=== PATIENT | male | born 1965 | race Caucasian/White ===

== ENCOUNTER → 2023-09-18 10:44 | Outpatient (REF) | payer BC, SELFPAY ==
[2023-09-18 16:19] LABS: Blood Urea Nitrogen 14 mg/dl (9-20); Calcium 10.2 mg/dl (8.4-10.2); Carbon Dioxide 22 mmol/L (22-30); Chloride 105 mmol/L (98-107); Glucose 87 mg/dl (70-99); Potassium 4.3 mmol/L (3.5-5.1); Sodium 139 mmol/L (135-145); eGFR > 60.00
== END ==
LOC: HWLAB 10:44
PROVIDERS: ATTENDING PHYSICIAN Surgery Vascular Surgery; FAMILY PHYSICIAN Family Medicine
DX: I65.23 Occlusion and stenosis of bilateral carotid arteries (principal)
CPT/HCPCS: 36415; 80048

== ENCOUNTER → 2023-09-25 08:40 | Outpatient (REF) | payer BC, SELFPAY | LOC: RAD 08:40 | PROVIDERS: ATTENDING PHYSICIAN Surgery Vascular Surgery; FAMILY PHYSICIAN Family Medicine | DX: I65.23 Occlusion and stenosis of bilateral carotid arteries (principal) | CPT/HCPCS: 70496; 70498; Q9967 ==

== ENCOUNTER 2023-10-21 08:27 | Inpatient (IN) | payer BC, SELFPAY ==
[2023-10-17 09:13] VITALS: BMI 24.7
[2023-10-17 10:15] LABS: % Basophils 1.1 % (0-2); % Eosinophils 3.1 % (0-6); % Immature Granulocytes 0.2 % (0-0.5); % Lymphocytes 31.8 % (20.5-51.1); % Neutrophils 57.8 % (42.2-75.2); Absolute Basophils 0.1 10^3/uL (0-0.2); Absolute Eosinophils 0.2 10^3/uL (0-0.7); Absolute Monocytes 0.4 10^3/uL (0.1-0.6); Absolute Neutrophils 3.7 10^3/uL (1.4-6.5); Hematocrit 44.3 % (39.0-52.0); Hemoglobin 15.2 g/dL (13.0-18.0); Mean Corp Hgb Conc. 34.3 g/dL (33.0-37.0); Mean Corpuscular Volume 87.4 fL (80.0-94.0); Mean Platelet Volume 9.9 fL (7.4-10.4); Nucleated Red Blood Cells % 0 % (-); Platelet Count 104 10^3/uL (130-400); Red Blood Cell Count 5.07 10^6/uL (4.70-6.10); Red Cell Dist. Width 13.2 % (11.5-14.5); White Blood Cell Count 6.4 10^3/uL (4.8-10.8)
[2023-10-17 10:23] LABS: APTT 29.8 Sec (23.4-35.0); INR 1.35; PT 16.5 Sec (11.4-14.6)
[2023-10-17 12:13] LABS: Blood Urea Nitrogen 19 mg/dl (9-20); Calcium 9.6 mg/dl (8.4-10.2); Carbon Dioxide 23 mmol/L (22-30); Chloride 103 mmol/L (98-107); Estimated Creatinine Clearance 101 ml/min; Glucose 72 mg/dl (70-99); Potassium 3.6 mmol/L (3.5-5.1); Sodium 135 mmol/L (135-145); eGFR > 60.00
--- NOTE | 2023-10-17 12:51 | PTCARENOTE ---
Adamaris in Dr. Benitez's office made aware of INR 1.35.
[2023-10-21] VITALS (21 sets, daily range): BP systolic 99–150; BP diastolic 51–86
[2023-10-21] MEDS: NSS 500 IV (09:39)
[2023-10-21] MEDS: PERIDEX 0.12% ORAL RINSE 15 ML PO (09:39)
[2023-10-21] MEDS: BACTROBAN NASAL 1 GRAM NASAL (09:40)
--- NOTE | 2023-10-21 09:56 | W.SUR.PREOP ---
Pre-Operative Surgical Note
-
I have examined this patient prior to the performance of the scheduled procedure.
The patient's condition is unchanged from the time of the current History and
Physical and the patient is able to undergo the scheduled procedure.
[2023-10-21 11:38] LABS: ACT-LR - POC 377 Seconds (116-155)
[2023-10-21 12:13] LABS: ACT-LR - POC 289 Seconds (116-155)
--- NOTE | 2023-10-21 13:06 | W.IMMPOSTOP ---
Surgical Immed Post Op Note
-
Primary Surgeon: Dr. Bhavesh Benitez III, MD
Assisting Surgeon: Dr. Andres Fuchs MD, PhD (PGY-1)
Pre-op Diagnosis: Right carotid stenosis
Post-op Diagnosis: Right carotid stenosis
Procedure Performed: Right carotid endarterectomy
Anesthesia Type: General
Specimen / Cultures: None
Estimated Blood Loss: Minimal
Complications: None
Operative Findings: Patient was positioned in supine position and ultrasound was used to confirmed the position and course of the right common carotid artery. After prepping and draping the patient, incision was made along the course of the common
carotid. Sharp dissection was used to expose the common carotid circumferentially. The internal jugular vein and vagus nerve were identified as avoid during the procedure. Small branches of the ansa cervicalis and the facial vein were ligated and
divided. The common carotid as well as the proximal aspects of the external and internal carotid branches were exposed. Vessel loops were placed around each of these arteries as well as the superficial thyroid artery. After these vessels were
isolated (internal, common, external), heparin was given. Vessel loop at the distal right common carotid was replaced with a clamp. Arteriotomy was performed on the common carotid extending into the internal branch beyond the area of disease.
Free-ers were used to remove the plaque from the inside of the common and proximal internal carotid arteries. A bovine pericardial patch was sized to the defect and a patch arterioplasty was performed with running 7-0 prolene suture. Heparinized
saline was injected prior to completion of the patch. After the patch was sewn, areas of additional bleeding were fixed with interrupted repair sutures. Vessel loops were removed and a strong waveform/flow was confirmed in both the internal and
external carotid arteries distally beyond the patch. Hemostasis was the achieved with gel foam. Soft tissues and skin were closed with suture layers and skin glue. Following extubation, the patient followed commands and had a non focal neuro exam
with gross motor function of all four extremities and tongue intact.
[2023-10-21] MEDS: DILAUDID 0.25 MG IV ×2 (13:26→13:39)
--- NOTE | 2023-10-21 13:27 | OR.RPT ---
Operative Report
Operative Report
Date of Operation: 10/21/2023
Pre Op Diagnosis: LEFT carotid artery stenosis, asymptomatic
Post Op Diagnosis: LEFT carotid artery stenosis, asymptomatic
Procedure: LEFT carotid artery endarterectomy with patch angioplasty using bovine pericardium
Surgeon: Bhavesh Benitez III, MD
Coupon Clerk: Andres Fuchs MD PhD, PGY1
Anesthesia: General
Complications: None
History and Indications for Procedure: 58-year-old male with asymptomatic high-grade stenosis of his left carotid artery
Procedure in Detail: Eduardo Riley was correctly identified and placed supine on the operating table. After adequate induction of anesthesia the left neck was positioned, prepped and draped in the usual sterile fashion. Preoperative
antibiotics were administered. A timeout procedure was performed with the nursing and anesthesia staff confirming the patients identity as well as the nature and laterality of the procedure.
The carotid bifurcation was marked with ultrasound at the beginning of the case. The incision was planned accordingly. An incision was made along the anterior border of the left sternocleidomastoid muscle. Electrocautery was used to divide the
subcutaneous tissue and platysma. The carotid sheath was entered with sharp dissection. The internal jugular vein was retracted laterally. The vagus nerve was identified and protected throughout the case. The common carotid artery was identified at
the base of this incision and carefully encircled with a vessel loop. The patient was systemically heparinized. The dissection was continued distally towards the carotid bifurcation. The facial vein was skeletonized, ligated and divided between silk
ties and metal clips. The proximal external carotid artery was encircled with a vessel loop. The distal internal carotid artery was encircled with a vessel loop at a soft spot on the artery beyond the plaque. The hypoglossal nerve was identified and
protected. In order to clearly visualize the distal internal carotid artery for the endarterectomy portion of the procedure I did have to gently and carefully retract the hypoglossal nerve cephalad under the Blue retractor.
The internal vessel loop was secured followed by the common and external. An arteriotomy was made on the distal common carotid artery with an 11-blade. This was extended proximally and distally with Brooks scissors. The arteriotomy was extended
distally through the plaque to an area of normal appearing internal carotid artery. The distal vessel loop was replaced with a short tip hockey-stick type vascular clamp. An endarterectomy was performed with a Alderson elevator in the standard
fashion. The proximal extent of the plaque was transected with scissors. The distal end of the plaque in the internal carotid artery feathered very nicely with no distal intimal flap identified. The plaque extending into the external carotid artery
was everted. Once the plaque was fully removed the endarterectomy plane was irrigated with heparinized saline and any loose fronds of tissue were removed. A pre-cut piece of bovine pericardium was sewn in place using a running 6-0 Prolene suture.
Prior to the completion of the patch the common carotid was allowed to forward bleed and the external was allowed to back bleed. The area under the patch was irrigated with heparinized saline to remove any potential thrombus or debris. The
anastomosis was completed.
The external vessel loop was released first, followed by the common and then the internal. There was an excellent pulse in the distal internal carotid artery. An excellent quality Doppler signal in the distal internal carotid artery was also
confirmed. The patch suture line was closely inspected for hemostasis and was achieved. Protamine was administered. Hemostasis was achieved in the wound bed. The wound was irrigated with saline solution.
The wound was then closed in layers. Sterile dressings were applied. The patient awoke from anesthesia with no immediate neuro deficits and was taken to the PACU in stable condition.
Attestation: I was present and responsible for the entire procedure
Signed:
Bhavesh Benitez III, MD
[facility] Vascular Surgery
[phone] (sqyn)
[2023-10-21 13:33] LABS: Hematocrit 37.4 % (39.0-52.0); Hemoglobin 13.3 g/dL (13.0-18.0); Mean Corp Hgb Conc. 35.6 g/dL (33.0-37.0); Mean Corpuscular Hgb 30.6 pg (27.0-31.0); Mean Platelet Volume 9.8 fL (7.4-10.4); Platelet Count 86 10^3/uL (130-400); Red Blood Cell Count 4.35 10^6/uL (4.70-6.10); Red Cell Dist. Width 13.2 % (11.5-14.5); White Blood Cell Count 6.9 10^3/uL (4.8-10.8)
[2023-10-21 13:39] LABS: INR 1.59; PT 18.8 Sec (11.4-14.6)
[2023-10-21 13:39] LABS: Blood Urea Nitrogen 15 mg/dl (9-20); Calcium 8.7 mg/dl (8.4-10.2); Carbon Dioxide 24 mmol/L (22-30); Chloride 107 mmol/L (98-107); Estimated Creatinine Clearance 116 ml/min; Glucose 115 mg/dl (70-99); Potassium 3.4 mmol/L (3.5-5.1); Sodium 136 mmol/L (135-145); eGFR > 60.00
--- NOTE | 2023-10-21 13:45 | SUR.PHASEI ---
Patient post left carotid surgery, VSS, neuro checks wnl, no deficits appreciated. BP stable. Patient seen by Dr Benitez and PA. report to AMANDA Faustin at 1340.
[2023-10-21] MEDS: DILAUDID 0.5 MG IV ×3 (13:53→17:51)
[2023-10-21] MEDS: CARDENE 200 IV (14:11)
[2023-10-21] MEDS: NSS 1000 IV (14:13)
--- NOTE | 2023-10-21 15:12 | PTCARENOTE ---
Received pt form PACU with RN, Tele, and Cardene drip via left AC IV site. MAP to be maintained between 70-90mmHg. Pt is awake and alert, SILVERIO, following simple commands and conversing appropriately. He is C/O left neck discomfort, worse when he
swallows. Ice pack to incision maintained. +palpable peripheral pulses, no edema. Right radial arterial line transduced, calibrated and monitored. Correlates to right U/E cuff pressure. He was informed of the plan of care with hourly neurological
assessment throughout the night and that we monitor for S/S of stroke, bleeding, hematoma and blood pressure management among other things. He verbalized his understanding. +BSX3. He is due to void. Eventually a size 30 condom catheter was placed.
Left neck incision with slight swelling along the incision line, closed with surgical glue and is DENSITY [employer] P[employer]CHER. He was instructed not to touch his incision and to always wash his hands before toughing it. He verbalized he had a dog. He is aware to not allow
his dog to jump on him or lick his face/neck and that after he touches the dog he is to wash his hands thoroughly to prevent infection. Safe environment maintained.
--- NOTE | 2023-10-21 15:18 | CON.INTV ---
Consultation
Consultation Request
Date/Time Consultation Requested: 10/21/2023
Date/Time Consultation Performed: 10/21/2023
Requesting Provider: Dr. Benitez
Performing Provider: Dr. Reynold Mcconnell
Reason for Consultation: Status post carotic endarterectomy-postoperative ICU
Medical History
-
History of Present Illness:
58-year-old man with history of hypertension, hypercholesterolemia found to have internal carotid artery stenosis. He was deemed candidate for revascularization.
Endarterectomy underwent on 10/21/[address] Benitez. No complications. Patient transferred to the critical care unit for further care.
Currently hemodynamically stable.
Denies any headache or blurry vision.
Denies stridor.
Past Medical History
Past Medical History: Other (See assessment and plan section)
Allergies / Home Medications
Allergies
Allergy/AdvReac Type Severity Reaction Status Date / Time
No Known Allergies Allergy Verified 10/21/23 09:24
Home Medications
�Medication �Instructions �Recorded �Confirmed �Last Taken �Type
amlodipine 2.5 mg tablet 2.5 mg PO DAILY 10/15/23 10/21/23 10/21/23 06:00 History
aspirin 81 mg tablet,delayed 81 mg PO DAILY 10/15/23 10/21/23 10/21/23 06:00 History
release
atorvastatin 40 mg tablet 40 mg PO DAILY 10/15/23 10/21/23 10/21/23 06:00 History
doxepin 100 mg capsule 150 mg PO HS 10/15/23 10/21/23 10/20/23 20:00 History
escitalopram oxalate 20 mg tablet 10 mg PO DAILY 10/15/23 10/21/23 10/21/23 06:00 History
lisinopril 40 mg tablet 40 mg PO DAILY 10/15/23 10/21/23 10/21/23 06:00 History
milk thistle 500 mg capsule 1,000 mg PO BID 10/15/23 10/15/23 Unknown History
temazepam 30 mg capsule 30 mg PO HS 10/15/23 10/21/23 10/20/23 20:00 History
Review of Systems
Vitals / Labs / Diagnostic Testing
Vital Signs
Temp Pulse Resp BP Pulse Ox
98 F 64 14 150/82 97
10/21/23 14:45 10/21/23 15:03 10/21/23 15:03 10/21/23 15:03 10/21/23 14:45
Lab Data
10/21/23 13:11
10/21/23 13:11
Laboratory Results
10/21/23
13:10
PT 18.8 H
INR 1.59
APTT 35.0
Diagnostic Testing:
Assessment
-
Status post right carotic endarterectomy
Conditions present prior admission:
Coronary artery disease
Hypertension
GE junction stricture
Active smoker: Quit less than a month ago-40+ pack year history of smoking.
Cirrhosis
Dyslipidemia
Hepatitis C
DJD
Cervical radiculopathy
Restless leg syndrome
Assessment and plan:
Postoperative surgical intensive care unit monitoring
Supplemental oxygen as needed
Incentive spirometry
Aspiration precautions
Chest x-ray 10/21/2023: Reviewed, showed no evidence for acute abnormalities.
Not bronchospastic on exam.
Incision is intact without hematoma
No stridor on exam
Neuro and vascular checks per protocol
As needed narcotics for pain. Watch respiratory status closely
Vascular surgery following-correspondence and operative notes reviewed
Monitor blood pressure
Restart oral antihypertensive
Cardene will be used as needed
Cardene drip if needed
Follow hemoglobin
Ongoing smoking cessation encouraged
Recommend outpatient lung cancer screening. Patient is aware.
Follow blood sugars
Insulin supplementation as needed
DVT prophylaxis heparin subcu
--- NOTE | 2023-10-21 15:19 | SUR.PHASEI ---
pacu addendum 1415 - patient treated with dilaudid IV for continued c/o left neck pain, ice to neck, added warm blanket to posterior neck for comfort with some relief. MAP continues to run high, Cardene Gtt started. Updated Sofia [address] [employer]FORMATION SYSTEM[employer] PL[employer]NER on cardene
addition and labs back - K 3.4. - patient discharged to ICCU at 1445 - hand off at bedside. attempted to contact , unavailable at dentist.
[2023-10-21 16:13] LABS: Magnesium 1.7 mg/dl (1.6-2.3)
--- NOTE | 2023-10-21 20:45 | PTCARENOTE ---
Rec'd care of patient at 1900. Patient alert and oriented. Neuro check completed with previous RN. No deficits. MAEx4. Smile symmetrical. Left neck incision approximated. Minor discomfort at site. VSS. IVFs and Cardene gtt infusing through LAC INT.
Titrated for MAP 70-90. Cardene titrated off at 2033. Right radial a-line leveled and zeroed. Correlating with BP cuff. Plan of care discussed.
[2023-10-21] MEDS: NEO-SYNEPHRINE 250 IV (21:46)
[2023-10-21] MEDS: SINEQUAN 150 MG PO (21:46)
[2023-10-22] VITALS (7 sets, daily range): BP systolic 126–162; BP diastolic 68–88; BMI 25.3
--- NOTE | 2023-10-22 00:06 | PTCARENOTE ---
Patient resting comfortably. No complaints. Assessment unchanged. VSS. Stan remains on at 20 mcg/min for MAP 70-90. 2L nc reapplied for POX dropping to low-mid 80's while asleep.
[2023-10-22] MEDS: DILAUDID 0.5 MG IV (02:42)
[2023-10-22] MEDS: NSS 1000 IV (02:50)
[2023-10-22 04:42] LABS: Hematocrit 36.7 % (39.0-52.0); Mean Corp Hgb Conc. 35.4 g/dL (33.0-37.0); Mean Corpuscular Hgb 30.5 pg (27.0-31.0); Mean Corpuscular Volume 86.2 fL (80.0-94.0); Mean Platelet Volume 10.1 fL (7.4-10.4); Platelet Count 104 10^3/uL (130-400); Red Blood Cell Count 4.26 10^6/uL (4.70-6.10); Red Cell Dist. Width 13.3 % (11.5-14.5); White Blood Cell Count 9.3 10^3/uL (4.8-10.8)
--- NOTE | 2023-10-22 04:46 | PTCARENOTE ---
No changes in assessment. Pain controlled with PRN Dilaudid x1. Left neck incision remains approximated. VSS.
[2023-10-22 04:49] LABS: INR 1.54; PT 18.3 Sec (11.4-14.6)
[2023-10-22 04:50] LABS: APTT 30.8 Sec (23.4-35.0)
--- NOTE | 2023-10-22 04:56 | PTCARENOTE ---
Stan gtt off.
[2023-10-22 05:12] LABS: Blood Urea Nitrogen 14 mg/dl (9-20); Calcium 8.8 mg/dl (8.4-10.2); Carbon Dioxide 23 mmol/L (22-30); Chloride 109 mmol/L (98-107); Estimated Creatinine Clearance > 125 ml/min; Glucose 149 mg/dl (70-99); Potassium 4.5 mmol/L (3.5-5.1); Sodium 137 mmol/L (135-145); eGFR > 60.00
[2023-10-22] MEDS: ROXICODONE 5 MG PO ×2 (06:43→11:05)
--- NOTE | 2023-10-22 07:00 | PTCARENOTE ---
Handoff report. C/O numbness on the left side of his tongue/left side of his neck but on the inside of his neck. Tongue deviation to the left, apparently this is known. Left AC IV site with 0.9nss@80ml/hr. Right radial arterial line transduced and
monitored. Good peripheral pulses, no edema. Condom catheter intact for clear yellow urine. He was informed of the plan of care to cap his IVF, remove right radial arterial line, and ambulate. He verbalized his understanding. Left neck incision
unchanged. He does not really like the ice pack. Feels like a very tender bruise. He was again instructed to keep his fingers off his incision, and to remember to always wash his hands prior to touching the incision and after he pets his dog. He
also is aware that he will have a follow-up visit already scheduled with Dr. Benitez's office on his discharge papers. Safe environment maintained.
--- NOTE | 2023-10-22 07:30 | PTCARENOTE ---
Right radial arterial line removed, hemostasis obtained @ 0745. Gauze dressing applied and covered with tegaderm. He was instructed to remove the dressing tomorrow. I instructed him to not push off the bed or any surface with that hand to avoid
bleeding or hematoma. I demonstrated to him how to hold pressure if he should see his wrist swell up or have blood on his dressing.
--- NOTE | 2023-10-22 07:30 | W.PN.VS ---
Addendum entered and electronically signed by Anup Greenwood MD 10/22/23 07:53:
Seen and examined with LATRELL Fletcher. Agree with findings as noted exceptions as follows. Patient notes complaints of slight throat discomfort and some numbness around the incision. Left neck incision is clean dry and intact. No hematoma.
Neurologically moves all extremities well. Tongue mild left deviation. Plan/as discussed and noted below.
Original Note:
Today's Communication / Plan
-
Seen and assessed with Dr. Greenwood
Assessment/Plan
-
POD1 LEFT carotid artery endarterectomy with patch angioplasty using bovine pericardium
Plan:
-DC A-line
-DC IV fluids
-Out of bed/ambulate
-Diet
-Possible DC later today
Subjective Data
-
Date of Service: October 22, 2023
Patient seen at bedside this a.m. with Dr. Greenwood. Patient offers no complaints time. No events overnight.
Objective Data
-
Vital Signs
Temp Pulse Resp BP Pulse Ox
97.9 F 67 16 131/78 100
10/22/23 03:18 10/22/23 06:00 10/22/23 06:00 10/22/23 06:00 10/22/23 04:45
Intake and Output
10/21/23 10/22/23 10/23/23
06:59 06:59 06:59
Intake Total 2561 / 2561
Output Total 2225 / 2225
Balance 336 / 336
Intake:
Oral fluids 990 / 990
IV fluids (Total) 1571 / 1571
NS 100 / 100
Stan 36 / 36
Nss 1,000 ml @ 80 mls/hr IV . 1200 / 1200
[id number] MATTIE Rx#:[id number]
cardene 195 / 195
nss 40 / 40
Output:
Urine, Voided 1475 / 1475
Suprapubic output 750 / 750
Lab Results
10/22/23 04:27
10/22/23 04:27
Calcium 8.8 mg/dl (8.4-10.2) 10/22/23 04:27
Magnesium 1.7 mg/dl (1.6-2.3) 10/21/23 13:11
Physical Exam
-
AAOx3
No tachypnea
No shortness of breath
No tachycardia
Abdomen soft
Neck site clean dry and intact, soft
Moves all extremities equally
Tongue midline
[2023-10-22] MEDS: NORVASC 2.5 MG PO (07:48)
[2023-10-22] MEDS: ZESTRIL 40 MG PO (07:50)
[2023-10-22] MEDS: ASPIR LOW (ENTERIC COATED) 81 MG PO (07:50)
--- NOTE | 2023-10-22 09:00 | PTCARENOTE ---
Ambulated on the unit without sob or dizziness. He remained in the chair upon return to his room .He is on a tele pack and is safely ambulating his room.
[2023-10-22] MEDS: LIPITOR 40 MG PO (09:04)
[2023-10-22] MEDS: LEXAPRO 10 MG PO (09:05)
[2023-10-22] MEDS: TYLENOL 650 MG PO (09:54)
--- NOTE | 2023-10-22 10:48 | CM ---
CM following re: discharge planning.
Discussed in Rounds, reviewed pt's chart, met with pt.
Pt is a 58 year old male, admitted with primary dx of POD1 s/p LEFT carotid artery endarterectomy with patch angioplasty using bovine pericardium.
Pt reports he lives with spouse in a 2SH, 3 steps to enter, has supportive son who lives nearby. 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 No DME, VN or SNF history.
Per Vascular Surgery, pt likely will be discharged home today. Pt is aware, expressed his agreement and he stated his spouse will transport home.
PCP: Krista Ortiz
Pharmacy: [facility]
D/C plan: home no needs. Spouse to transport
--- NOTE | 2023-10-22 11:45 | W.PN.INTV ---
Today's Communication / Plan
Recommendations
Discharge tentatively today.
Reconsult as needed.
Assessment
-
Assessment:
Patient is a 58-year-old male admitted to the ICU s/p left carotid artery endarterectomy postop day 1 for observation.
Conditions present prior admission:
Coronary artery disease
Hypertension
GE junction stricture
Active smoker: Quit less than a month ago-40+ pack year history of smoking.
Cirrhosis
Dyslipidemia
Hepatitis C
DJD
Cervical radiculopathy
Restless leg syndrome
Assessment and plan:
Postoperative surgical intensive care unit monitoring
- Incentive spirometry
- Chest x-ray 10/21/2023: Reviewed, showed no evidence for acute abnormalities.
- Not bronchospastic on exam.
- Incision is intact without hematoma
- No stridor on exam
- Neuro and vascular checks per protocol
- As needed narcotics for pain. Watch respiratory status closely
- Vascular surgery following-correspondence and operative notes reviewed
Hypertension
- Controlled.
- Monitor blood pressure
- Continue oral antihypertensive
Active smoker:
- Ongoing smoking cessation encouraged
- Recommend outpatient lung cancer screening. Patient is aware.
DVT prophylaxis heparin subcu
Subjective Dataa
Subjective Data
Date of Service:
Date of Service: October 22, 2023
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
Subjective:
There was no acute events reported overnight
Review of Systems
General: Fever (Negative) and Chills (Negative)
Cardiopulmonary: Dyspnea (Negative), Wheezing (Negative), Chest Pain (Negative) and Edema (Negative)
GI: Abdominal Pain (Negative)
Neuro: Headache (Negative) and Dizziness (Negative)
Objective Data
Data Reviewed
Vital Signs / I&O / Oxygen:
Vital Signs
Temp Pulse Resp BP Pulse Ox
98.7 F 67 15 139/88 100
10/22/23 11:14 10/22/23 07:50 10/22/23 07:49 10/22/23 07:50 10/22/23 04:45
Intake and Output
10/21/23 10/22/23 10/23/23
06:59 06:59 06:59
Intake Total 2561 / 2641 680 / 680
Output Total 2225 / 2225
Balance 336 / 416 680 / 680
SaO2 100
Nasal Cannula flow liters per 2
minute
Physical Exam
General: Comfortable
HEENT: Normocephalic, Anicteric and Moist Mucous Membranes
Cardiovascular: S1-S2, Regular Rhythm, Murmur (Negative), Rub (Negative) and Peripheral Edema (Negative)
Respiratory: Clear, Wheeze (Negative), Crackles (Negative) and Non-Labored Respirations
GI: Soft, Non Distended, Non Tender and Normal Bowel Sounds
Neurology: Awake, Alert, Oriented, AO x 3 and No Motor Deficits
Skin: Warm and Dry
Labs/Micro/Reports
Lab Data
10/22/23 04:27
10/22/23 04:27
Laboratory Results
10/21/23 10/22/23
13:10 04:27
PT 18.8 H 18.3 H
INR 1.59 1.54
APTT 35.0 30.8
--- NOTE | 2023-10-22 14:30 | W.DS.TRANS ---
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
-
Discharge Instructions:
Discharge Diagnosis/Procedures Left carotid endarterectomy
Diet As tolerated
Activity No strenuous activity
Driving Restrictions Not until seen by your Dr
Bathing Restrictions OK to Shower
Wound Care If you experience swelling, increased bruising
, drainage from neck site, or fever, please call
the office
Instructions:
Stand-Alone Forms: DC Instr - Vascular OR
Changes to Home Medications: No
Discharge Medications:
DC Medications w/original date entered in [facility]
amlodipine 2.5 mg tablet 2.5 mg PO DAILY Blood Pressure 10/15/23
aspirin 81 mg tablet,delayed release 81 mg PO DAILY Blood Clot Prevention/Tx 10/15/23
atorvastatin 40 mg tablet 40 mg PO DAILY High Cholesterol 10/15/23
doxepin 100 mg capsule 150 mg PO HS Mental Health/Anxiety 10/15/23
escitalopram oxalate 20 mg tablet 10 mg PO DAILY Mental Health/Anxiety 10/15/23
lisinopril 40 mg tablet 40 mg PO DAILY Blood Pressure 10/15/23
milk thistle 500 mg capsule 1,000 mg PO BID Supplement 10/15/23
temazepam 30 mg capsule 30 mg PO HS Sleep 10/15/23
Home Medication Changes
Pending Results: No
--- NOTE | 2023-10-22 14:46 | PTCARENOTE ---
Pt escorted by staff to waiting car with his spouse driving. All instruction provided in writing. He was able to verbalize how to shower, when he can drive, and return to work, he understands no heavy lifting and the importance of keeping his
hands/fingers away from his incision to prevent infection. He verbalized S/S of infection. Disposable digital thermometer provided from his room. Left AC IV site removed, hemostasis obtained and gauze dressing applied.
--- NOTE | 2023-10-22 15:11 | W.DCSUMMARY ---
Discharge Summary
Discharge Data
Date of Admission: 10/21/23
Date of Discharge: 10/22/23
-
Pending Results: No
Hospital Course
Attending: Bhavesh Benitez III, MD
Consultants: Pulmonary medicine
Allergies: NKDA
Procedure with date: Left carotid artery endarterectomy with patch angioplasty using bovine pericardium: On 10/21/[address] Bhavesh Benitez III, MD
History of present illness: The patient is an 58-year-old male with multiple medical conditions including: carotid stenosis, CAD, active smoker, psoriasis, hepatitis C, cervical radiculopathy, restless leg syndrome, thrombocytopenia, dyslipidemia,
and hypertension. Patient presented on 10/21/2023 for scheduled procedure with Dr. Bhavesh Benitez III. Patient presented at baseline health with no reports of recent illness or trauma.
Hospital Course: Briefly, the patient underwent scheduled left carotid endarterectomy without complications, and recovered in PACU. Following recovery phase one and two patient was transferred to intensive care unit per protocol for continued
hemodynamic monitoring. Steel Layout Worker consulted to aid in medical management from a critical care perspective. POD #1 (10/22/2023) Patient neurologically intact, face symmetrical, and tolerating PO diet. He does exhibit scant tongue deviation to left
side, unchanged from postoperative period. Surgical left neck clean, dry, and intact with suture line well approximated and soft. No evidence of hematoma. Arterial line and IV fluids discontinued. Patient able to ambulate without difficulty or
incident. Denies difficulty swallowing, and continues to tolerate p.o. intake. Patient stable for discharge to home.
Prescriptions and follow up appointment are included in the DC summary soloist dancer note. All instructions were given to the patient in both written and verbal form and the patient expressed understanding.
Discharge Plan
-
Patient Disposition: Home (Routine Discharge)
Discharge Diagnosis/Procedures: Left carotid endarterectomy
Condition: Good
Diet: As tolerated
Activity: No strenuous activity
Driving Restrictions: Not until seen by your Dr
Bathing Restrictions: OK to Shower
Wound Care: If you experience swelling, increased bruising, drainage from neck site, or fever, please call the office
Activity Restrictions/Additional Instructions:
If you experience severe constant headache, weakness to an arm or leg, change in vision, trouble speaking or any stroke-like symptom, call 911 immediately
Stand Alone Forms: DC Instr - Vascular OR
Referrals:
Socorro Russell PA-C [Specified Professional Personl] - 11/04/23 9:30 am
Reynold Ortiz MD [Active] - (Possible COPD/Lung cancer screen)
Tenthoff,Krista Gallego MD [Family Provider] -
Prescriptions:
Continued
atorvastatin 40 mg Tablet
40 mg PO DAILY
milk thistle 500 mg Capsule
1,000 mg PO BID
amlodipine 2.5 mg Tablet
2.5 mg PO DAILY
aspirin 81 mg Tablet,Delayed Release (Dr/Ec)
81 mg PO DAILY
temazepam 30 mg Capsule
30 mg PO HS
doxepin 100 mg Capsule
150 mg PO HS
lisinopril 40 mg Tablet
40 mg PO DAILY
escitalopram oxalate 20 mg Tablet
10 mg PO DAILY
Discharge Orders:
Discharge Patient (As Directed); Ordered 10/22/23
Ordered By: Payton Fletcher
Discharge Date and Time
Discharge Date/Time: 10/22/23 14:45
Print Language: POLISH
== END 2023-10-22 14:45 | disposition home or self-care (01) | DRG 39 ==
LOC: ICU 08:27
PROVIDERS: Nurse Practitioner; ADMITTING PHYSICIAN Surgery Vascular Surgery; CONSULT PHYSICIAN Internal Medicine Critical Care Medicine; FAMILY PHYSICIAN Family Medicine
PROC: 03CJ0ZZ Extirpation of Matter from Left Common Carotid Artery, Open Approach (ICD-10-PCS; 2023-10-21)
PROC: 03UJ0KZ Supplement Left Common Carotid Artery with Nonautologous Tissue Substitute, Open Approach (ICD-10-PCS; 2023-10-21)
DX: I65.22 Occlusion and stenosis of left carotid artery (principal); I10 Essential (primary) hypertension; E78.00 Pure hypercholesterolemia, unspecified; I65.29 Occlusion and stenosis of unspecified carotid artery; I25.10 Atherosclerotic heart disease of native coronary artery without angina pectoris; F17.200 Nicotine dependence, unspecified, uncomplicated; K74.60 Unspecified cirrhosis of liver; B19.20 Unspecified viral hepatitis C without hepatic coma; M19.90 Unspecified osteoarthritis, unspecified site; M54.12 Radiculopathy, cervical region; G25.81 Restless legs syndrome; D69.6 Thrombocytopenia, unspecified; L40.9 Psoriasis, unspecified
CPT/HCPCS: 35301; 36415; 71045; 71046; 80048; 83735; 85025; 85027; 85610; 85730; 87070; 93005

== ENCOUNTER → 2023-12-02 | Outpatient (REF) | payer BC, SELFPAY | LOC: DHSLP | PROVIDERS: ATTENDING PHYSICIAN Internal Medicine Critical Care Medicine; FAMILY PHYSICIAN Family Medicine | DX: G47.33 Obstructive sleep apnea (adult) (pediatric) (principal) | CPT/HCPCS: 95800 ==

== ENCOUNTER 2024-08-04 08:09 | Emergency (ER) | payer BC, SELFPAY ==
[2024-08-04 08:12] VITALS: BP 165/102
[2024-08-04 08:39] VITALS: BMI 24.6
[2024-08-04 10:05] LABS: % Basophils 1.5 % (0-2); % Eosinophils 2.4 % (0-6); % Immature Granulocytes 0.3 % (0-0.5); % Lymphocytes 27.4 % (20.5-51.1); % Monocytes 6.7 % (1.7-9.3); % Neutrophils 61.7 % (42.2-75.2); Absolute Basophils 0.1 10^3/uL (0-0.2); Absolute Eosinophils 0.2 10^3/uL (0-0.7); Absolute Lymphocytes 1.8 10^3/uL (1.2-3.4); Absolute Monocytes 0.4 10^3/uL (0.1-0.6); Hematocrit 44.1 % (39.0-52.0); Hemoglobin 15.5 g/dL (13.0-18.0); Mean Corp Hgb Conc. 35.1 g/dL (33.0-37.0); Mean Corpuscular Hgb 29.6 pg (27.0-31.0); Mean Corpuscular Volume 84.2 fL (80.0-94.0); Mean Platelet Volume 9.9 fL (7.4-10.4); Nucleated Red Blood Cells % 0 % (-); Platelet Count 122 10^3/uL (130-400); Red Blood Cell Count 5.24 10^6/uL (4.70-6.10); Red Cell Dist. Width 14.2 % (11.5-14.5); White Blood Cell Count 6.5 10^3/uL (4.8-10.8)
[2024-08-04 10:08] LABS: ALT (SGPT) 54 U/L (0-50); AST (SGOT) 38 U/L (17-59); Albumin 4.7 g/dl (3.5-5.0); Alkaline Phosphatase 104 U/L (38-126); Blood Urea Nitrogen 20 mg/dl (9-20); Calcium 9.7 mg/dl (8.4-10.2); Carbon Dioxide 23 mmol/L (22-30); Chloride 106 mmol/L (98-107); Estimated Creatinine Clearance 118 ml/min; Glucose 102 mg/dl (70-99); Potassium 3.9 mmol/L (3.5-5.1); Sodium 142 mmol/L (135-145); Total Bilirubin 1.9 mg/dl (0.2-1.3); Total Protein 7.7 g/dl (6.3-8.2); eGFR > 60.00
[2024-08-04 10:18] LABS: Troponin I < 0.012 ng/ml
[2024-08-04 13:03] LABS: Troponin I < 0.012 ng/ml
--- NOTE | 2024-08-04 13:36 | ED.GENMED ---
History of Present Illness
General
Chief Complaint: Chest Pain
Source: patient
Exam Limitations: none
Time Seen by Provider: 08/04/24 08:44
History of Present Illness
History of Present Illness:
59-year-old male with history of coronary artery disease has a stent also with history of carotid endarterectomy presents complaining of onset of chest discomfort as of last evening but the pain has been persistent and occasionally radiates to the
neck. He denies arm or leg pain. No fevers or cough. He notes shortness of breath with this as well. No vomiting. No other complaints at this time
Phy Exam
Physical Exam
Physical Exam:
General: Well-appearing male no acute respiratory distress
HEENT: Normocephalic atraumatic neck is supple
Heart: Regular rate and rhythm no murmurs
Lungs: Clear no wheeze
Abdomen is soft nontender nondistended no guarding rebound normal bowel sounds
Extremities: No cyanosis
Skin: Warm no rash
Scores
Heart Score for Chest Pain Patients
STEMI patient?: No
History: Slightly or Non-Suspicious
ECG: Normal
Age: >45 - <65 years
Risk Factors: >/= 3 Risk Factors or History of CAD
Troponin: </= Normal Limit
Heart Score for Chest Pain Patients: 3
Heart Score Risk: 2.5% MACE over next 6 weeks
Course
Orders/Labs/Results
Orders:
Orders
08/04/24 08:09
ECG [Electrocardiogram (*1)] Urgent
Reason for Study: Chest Pain
08/04/24 08:10
EKG- Treatment ONCE
08/04/24 09:16
CT Chest PE Study Urgent
Comment:
Reason For Exam: chest/neck pain
08/04/24 09:42
Complete Blood Count/With Diff Urgent
Comprehensive Metabolic Panel Urgent
Troponin I Urgent
08/04/24 12:25
Troponin I Urgent
Abnormal Lab Results
08/04/24
09:42
Plt Count 122 L 10^3/uL
(130-400)
Glucose 102 H mg/dl
(70-99)
Total Bilirubin 1.9 H mg/dl
(0.2-1.3)
ALT 54 H U/L
(0-50)
08/04/24 09:42
08/04/24 09:42
Vital Signs
Initial and Last Documented VS:
Initial Vital Signs
Temp Pulse Resp BP Pulse Ox
98.0 F 59 20 165/102 100
08/04/24 08:12 08/04/24 08:12 08/04/24 08:12 08/04/24 08:12 08/04/24 08:12
Last Documented Vital Signs
Temp Pulse Resp BP Pulse Ox
98.0 F 54 18 165/102 100
08/04/24 08:12 08/04/24 12:00 08/04/24 08:38 08/04/24 08:12 08/04/24 08:12
MDM/Problems Addressed
Differential Diagnosis Includes:
Patient here with chest pain. History of coronary artery disease and vascular disease. Consider ACS versus dissection versus PE versus musculoskeletal chest pain
Will order troponin EKG CT of chest.
*Critical Care Note
Total Time (30-74mins, 75-104mins- exclusive of procedures): Not Applicable
Update Note
Update Note:
Initial and repeat troponins undetectable. CT PE study also negative for PE or dissection. Vital signs remained stable.
Patient otherwise nontoxic. Will refer back to cardiology for follow-up and no indication for any further intervention or admission at this time
ED Attending Note
-
Portions of this chart may have been created with voice recognition software.� Occasional wrong word or��sound alike� substitutions may have occurred due to the inherent limitations of voice recognition software.
Discharge Plan
Departure
Patient Disposition: Home (Routine Discharge)
Date of Disposition: 08/04/24
Time of Disposition: 13:39
Patient with high blood pressure during this ER visit?: No
Discharge Problem:
Chest pain
Instructions: Chest Pain CBC Follow Up
Prescriptions:
No Action
atorvastatin 40 mg Tablet
40 mg PO DAILY
milk thistle 500 mg Capsule
1,000 mg PO BID
amlodipine 2.5 mg Tablet
2.5 mg PO DAILY
aspirin 81 mg Tablet,Delayed Release (Dr/Ec)
81 mg PO DAILY
temazepam 30 mg Capsule
30 mg PO HS
doxepin 100 mg Capsule
150 mg PO HS
lisinopril 40 mg Tablet
40 mg PO DAILY
escitalopram oxalate 20 mg Tablet
10 mg PO DAILY
Referrals:
[facility] [[facility] Provider[facility] -
Activity Restrictions/Additional Instructions:
Please return here for worsening symptoms otherwise follow-up with your doctor
Interventions
Interventions:
*Risk Screen - Suicide Last Done: 08/04/24 08:42
*General Assessment Last Done: 08/04/24 08:40
*Neglect/Abuse Screening Last Done: 08/04/24 08:42
*ED COVID-19 Vaccine History Last Done: 08/04/24 08:40
ED- Cardiac Assessment Last Done: 08/04/24 08:43
Discharge Date and Time
Print Language: SERBIAN
[2024-08-04 14:39] VITALS: BP 155/99
== END 2024-08-04 14:41 | disposition home or self-care (01) ==
LOC: EMR 08:09
PROVIDERS: Physician Assistant; EMERGENCY PHYSICIAN Student in an Organized Health Care Education/Training Program; FAMILY PHYSICIAN Family Medicine
DX: R07.89 Other chest pain (principal); I25.10 Atherosclerotic heart disease of native coronary artery without angina pectoris; Z95.5 Presence of coronary angioplasty implant and graft
CPT/HCPCS: 99284; 71275; 80053; 84484; 85025; 93005; Q9967